=== PATIENT | male | born 2005 | race Caucasian/White ===

== ENCOUNTER → 2024-07-09 | Outpatient (CLI) | payer BC, SELFPAY ==
[2024-07-09 14:59] LABS: Syphilis Nonreactive (Nonreactive)
[2024-07-09 15:20] LABS: Hepatitis A Antibody IgM Non Reactive (Non React); Hepatitis B Core Antibody IgM Non Reactive (Non React); Hepatitis B Surface Antigen Non Reactive (Non React); Hepatitis C Antibody Non Reactive (Non React)
[2024-07-09 15:57] LABS: HIV (1&2) Antibody Rapid Non-Reactive
[2024-07-09 16:25] LABS: Chlamydia trachomatis PCR Negative (Not Detect); Neisseria Gonorrhoeae DNA PCR Negative (Not Detect); Trichomonas Negative (Negative)
== END | disposition home or self-care (01) ==
PROVIDERS: PCP Family Medicine; Referring Provider Nurse Practitioner Family; Visit Provider Nurse Practitioner Family
DX: Z11.6 Encounter for screening for other protozoal diseases and helminthiases (principal)
CPT/HCPCS: 36415; 80074; 86703; 86780; 87491; 87591; 87661